=== PATIENT | female | born 1970 | race African-American/Black ===

== ENCOUNTER 2020-04-15 09:14 | Emergency (ER) | payer BC, SELFPAY ==
[2020-04-15 09:29] VITALS: BP 179/79; PULSE 79; RESP 16; TEMP 36.3; O2SAT 100
--- NOTE | 2020-04-15 09:29 | ED.FEMALEGU ---
HPI - Female Genitourinary General Chief complaint: Urogenital-Female Stated complaint: Std testing Time Seen by Provider: 04/15/20 09:29 Source: patient and RN notes reviewed Mode of arrival: ambulatory Limitations: no limitations History of Present Illness HPI Narrative: 49 year old female who presents to [facility] care with complaints of fishy odor in private region which patient states she noted last night after having intercourse. Patient denies any discharge or itching in vaginal region, denies any urinary symptoms, denies any burning, pain, frequency or urgency with urination. Patient denies any pelvic pain, states she is in monogamous relationship and denies need to be checked for STD's, states that she feels it is bacterial vaginosis and wants treated. Patient states that she has appointment with her [employer] in May. MD elicited complaint: other (fishy odor denies any discharge) Onset (ago): day(s) (1) Location of symptoms: vaginal (odor) Severity: moderate Female Urogenital Radiation: Non-Radiating Vaginal discharge: none Vaginal bleeding: none Exacerbating factors: none Relieving factors: none Associated symptoms: denies other symptoms Treatment prior to arrival: none Sexual activity: Yes Patient : No Date of Last Menstrual Period: 04/01/20 Related Data Allergies Allergy/AdvReac Type Severity Reaction Status Date / Time No Known Allergies Allergy Verified 04/15/20 09:25 Review of Systems Review of Systems: Narrative: CONSTITUTIONAL: Denies fever, chills, or sweats. EYES: Denies visual changes, redness, or discharge. ENT: Denies rhinorrhea, congestion, sore throat, or otalgia. CARDIOVASCULAR: Denies chest pain, palpitations, or edema. RESPIRATORY: Denies cough or dyspnea. GASTROINTESTINAL: Denies abdominal pain, nausea, vomiting, or diarrhea. GENITOURINARY: Denies dysuria or hematuria.states vaginal fishy odor noted, denies any discharge SKIN: Denies rash or itching. MUSCULOSKELETAL: Denies back pain, joint pain, or myalgia. NEUROLOGIC: Denies headache, numbness, or weakness. PSYCHIATRIC: Denies anxiety or depression. All systems reviewed & are unremarkable except as noted in HPI and below PMFSH Past Medical History Medical History (Updated 04/15/20 @ 09:50 by Edith Jones NP) No pertinent past medical history Surgical History Surgical History (Updated 04/15/20 @ 09:30 by Edith Jones NP) Previous section Family History Family History (Updated 04/15/20 @ 09:46 by Edith Jones NP) Mother Hypertension Diabetes mellitus Social History Social History (Updated 04/15/20 @ 09:46 by Edith Jones NP) Smoking status: Never smoker Alcohol intake: current Alcohol use details: social Substance use: never Living arrangements: with family Gender identity (if verbalized by the patient): Female Comments At time of signature, agree with nursing past medical, surgical, social and family history. There is no relevant family history pertinent to the presenting complaint Exam Narrative: Exam Narrative: GENERAL: Well-appearing, well-nourished, and in no acute distress. HEAD: Normocephalic, atraumatic. EYES: PERRLA and EOMI. ENT: Nares clear, no rhinorrhea or epistaxis. Mucous membranes moist. NECK: Supple.no lymphadenopathy CHEST: Clear to auscultation. No respiratory distress.SAO2 100% HEART: Regular rate and rhythm. No murmur heard. Normal peripheral pulses. ABDOMEN: Soft, nontender, nondistended, normal active bowel sounds, no abdominal cramping or pain, denies any vaginal discharge. Reports vaginal odor, denies any itching. EXTREMITIES: Normal range of motion. No edema. SKIN: Warm, dry, no rash. NEURO: No focal deficits. Alert and oriented x3. Course Vital Signs Vital signs: Vital Signs Temperature 36.3 C L 04/15/20 09:29 Pulse Rate 79 04/15/20 09:29 Respiratory Rate 16 04/15/20 09:29 Blood Pressure 179/79 H 04/15/20 09:29 Pulse Oximetry
== END 2020-04-15 09:54 | disposition home or self-care (01) ==
PROVIDERS: Emergency Provider Registered Nurse
DX: N76.0 Acute vaginitis (principal)
CPT/HCPCS: 99203; G0463